=== PATIENT | female | born 1985 | race African-American/Black ===

== ENCOUNTER 2017-02-04 16:41 | Emergency (ER) | payer SELFPAY ==
[~2017-02-04] VITALS: Ht 167.6 cm; Wt 80.3 kg
[2017-02-04 16:57] VITALS: BP 150/93
[2017-02-04] MEDS ORDERED: KETOROLAC TROMETH 60MG/2ML VIAL IM ONE (18:00)
== END 2017-02-04 18:30 | disposition home or self-care (01) ==
LOC: ER 16:41
DX: S46.912A Strain of unspecified muscle, fascia and tendon at shoulder and upper arm level, left arm, initial encounter (principal); X58.XXXA Exposure to other specified factors, initial encounter; Y93.89 Activity, other specified; Y99.9 Unspecified external cause status; Y92.512 Supermarket, store or market as the place of occurrence of the external cause
CPT/HCPCS: 73030; 96372; 99284; J1885